=== PATIENT | male | born 1990 | race Caucasian/White ===

== ENCOUNTER 2016-07-09 11:45 | Emergency (ER) | payer SELFPAY ==
[~2016-07-09] VITALS: Ht 172.7 cm; Wt 76.0 kg
[2016-07-09 11:49] VITALS: Ht 172.7 cm; Wt 76.0 kg
== END 2016-07-09 14:37 | disposition left against medical advice (07) ==
LOC: FTE 11:45
DX: Z53.21 Procedure and treatment not carried out due to patient leaving prior to being seen by health care provider (principal)

== ENCOUNTER 2016-09-06 04:20 | Emergency (ER) | payer SELFPAY ==
[~2016-09-06] VITALS: Ht 172.7 cm; Wt 79.0 kg
[2016-09-06 04:24] VITALS: Ht 172.7 cm; Wt 79.0 kg
--- NOTE | 2016-09-06 06:01 | RADRPT ---
PROCEDURE: CT brain without contrast. CLINICAL INDICATION: Headache. TECHNIQUE: CT scan of the brain was performed on a multi-detector high-resolution CT scanner. Co ntiguous axial images were obtained from the skull base to the vertex without intravenous contrast. Coronal and sagittal reformatted images were also obtained. Images were reviewed on the PACS works tation. One or more of the following dose reduction techniques were used: - Automated exposure control. - Adjustment of the mA and/or kV according to patient size. - Use of iterative reconstruction technique. Exam CTD/vol = 44.81 mGy. Total exam DLP = 720.23 mGy-cm. COMPARISON: None. FINDINGS: The ventricles and cortical sulci are within normal limits for patient's age. There is a ted cister na magna. There are no areas of abnormal attenuation within the brain parenchyma. There is no mass effect or midline shift. There is no intracranial hemorrhage or abnormal extra-axial collection. The calvarium is intact. There is no evidence of fracture. Visualized paranasal sinuses and mastoid air cells are clear. 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 IMPRESSION: No acute intracranial abnormality identified. .Marco Hamm MD, MD Date Time Electronically viewed and signed by .Macro Hamm MD, MD on 09/06/2016 06:01 .T/
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
[2016-09-06] MEDS ORDERED: KETOROLAC 30 MG INJ IV STA (06:10)
[2016-09-06] MEDS ORDERED: HC30CR25 TOP (06:24)
[2016-09-06] MEDS ORDERED: DIPHENHYDRAMINE 50 MG INJ IV ONE (06:30)
[2016-09-06] MEDS ORDERED: METOCLOPRAMIDE 10 MG INJ IV ONE (06:30)
[2016-09-06] MEDS ORDERED: SOD CHLORIDE 0.9% 1,000 ML IV ONE (06:30)
== END 2016-09-06 06:30 | disposition left against medical advice (07) ==
LOC: FTE 04:20
DX: R51 Headache (principal); R21 Rash and other nonspecific skin eruption; Z87.891 Personal history of nicotine dependence
CPT/HCPCS: 70450; J7030

== ENCOUNTER 2018-05-01 03:53 | Emergency (ER) | payer MEDICAID ==
[~2018-05-01] VITALS: Ht 172.7 cm; Wt 87.5 kg
[~2018-05-01 03:53] MED LIST: HC30CR25 TOP
[2018-05-01 03:58] VITALS: BP 134/74; PULSE 74; RESP 18; Ht 172.7 cm; Wt 87.5 kg
[2018-05-01] MEDS ORDERED: ONDANSETRON (ODT) 4 MG TAB ODT STA (06:25)
[2018-05-01] MEDS ORDERED: HYDROCODONE/APAP (5/325) TAB PO ONE (06:30)
[2018-05-01] MEDS ORDERED: DOXY100T21 PO (07:33)
[2018-05-01] MEDS ORDERED: IBUP-1542 PO (07:34)
[2018-05-01] MEDS ORDERED: ACET1TAB40 PO (07:34)
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
== END 2018-05-01 07:52 | disposition home or self-care (01) ==
LOC: FTE 03:53
DX: R51 Headache (principal); R40.2142 Coma scale, eyes open, spontaneous, at arrival to emergency department; R40.2362 Coma scale, best motor response, obeys commands, at arrival to emergency department; R40.2252 Coma scale, best verbal response, oriented, at arrival to emergency department; Z87.891 Personal history of nicotine dependence
CPT/HCPCS: 70450; 70480; Z7502; Z7610

== ENCOUNTER 2018-05-09 19:23 | Emergency (ER) | payer MEDICAID ==
[~2018-05-09] VITALS: Ht 170.2 cm; Wt 86.0 kg
[~2018-05-09 19:23] MED LIST changes: +ACET1TAB40 PO; +DOXY100T21 PO; +IBUP-1542 PO
[2018-05-09 19:45] VITALS: BP 131/79; PULSE 104; RESP 18; Ht 170.2 cm; Wt 86.0 kg
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
[2018-05-09] MEDS ORDERED: IBUP-1561 PO (21:57)
[2018-05-09] MEDS ORDERED: ACET325T33 PO (21:57)
[2018-05-09] MEDS ORDERED: IBUPROFEN 200 MG TAB PO ONE (22:00)
== END 2018-05-09 22:16 | disposition home or self-care (01) ==
LOC: FTE 19:23
DX: M25.561 Pain in right knee (principal); M25.562 Pain in left knee; Z87.891 Personal history of nicotine dependence
CPT/HCPCS: Z7502; Z7610; 99282

== ENCOUNTER 2018-05-11 00:49 | Emergency (ER) | payer SELFPAY ==
[~2018-05-11] VITALS: Ht 172.7 cm; Wt 87.0 kg
[~2018-05-11 00:49] MED LIST changes: +ACET325T33 PO; +IBUP-1561 PO
[2018-05-11 00:52] VITALS: BP 131/70; PULSE 118; RESP 18; Ht 172.7 cm; Wt 87.0 kg
[2018-05-12] MEDS ORDERED: ACET1TAB40 PO (02:52)
== END 2018-05-11 05:05 | disposition left against medical advice (07) ==
LOC: FTE 00:49
DX: Z53.21 Procedure and treatment not carried out due to patient leaving prior to being seen by health care provider (principal)

== ENCOUNTER 2018-05-12 00:08 | Emergency (ER) | payer MEDICAID, OTHER ==
[~2018-05-12] VITALS: Ht 165.1 cm; Wt 86.2 kg
[2018-05-12 00:37] VITALS: Ht 165.1 cm; Wt 86.2 kg
--- NOTE | 2018-05-12 02:50 | ERD ---
ER Documentation Chief Complaint Chief Complaint chronic bilateral knee pain HPI 28-year-old male, returns to the emergency department, complaining of persistent knee pain despite the use of Tylenol and Motrin. He denies recent trauma, no fever, no chills. ROS All systems reviewed and are negative except as per history of present illness. Medications Home Meds Active Scripts Acetaminophen* (Tylenol*) 325 Mg Tablet, 2 TAB PO Q8 PRN for PAIN AND OR ELEVATED TEMP, #20 TAB Prov:FCO AYALA MD 05/09/18 Ibuprofen* (Motrin*) 400 Mg Tab, 400 MG PO Q8, #15 TAB Prov:FCO AYALA MD 05/09/18 Acetaminophen with Codeine (Acetaminophen-Cod #3 Tablet) 1 Each Tablet, 1 TAB PO Q6H PRN for PAIN, #10 TAB Prov:SHANNON GOMEZ MD 05/01/18 Ibuprofen* (Motrin*) 600 Mg Tab, 600 MG PO Q6, #20 TAB Prov:SHANNON GOMEZ MD 05/01/18 Doxycycline Monohydrate* (Doxycycline Monohydrate*) 100 Mg Tablet, 100 MG PO BID for 7 Days, TAB Prov:SHANNON GOMEZ MD 05/01/18 Hydrocortisone* Topical (Hydrocortisone* Topical) 2.5%-28.3 Gm Cream..g., 1 A PPLIC TOP BID for 7 Days, #1 TUB Prov:SHANNON GOMEZ MD 09/06/16 Allergies Allergies: Coded Allergies: No Known Allergies (Verified Allergy, Unknown, 09/06/16) PMhx/Soc History of Surgery: Yes (R TIB FIB ORIF, METAL PLATE TO SKULL, L EYE PROSTHESIS) Anesthesia Reaction: No Hx Neurological Disorder: No Hx Respiratory Disorders: No Hx Cardiac Disorders: No Hx Psychiatric Problems: Yes (ETOH abuse, marijuana use) Hx Miscellaneous Medical Probl: No Hx Alcohol Use: Yes (ETOH abuse, sober for 3 years) Hx Substance Use: Yes (marijuana,last used 04/24/2018) Hx Tobacco Use: Yes (quit) Smoking Status: Current every day smoker FmHx Family History: No diabetes, No coronary disease Physical Exam Vitals Vital Signs Date Temp Pulse Resp B/P (MAP) Pulse Ox O2 O2 Flow FiO2 Time Delivery Rate 05/12/18 97.3 96 16 138/88 99 00:37 (105) Physical Exam Const: No acute distress Head: Atraumatic Eyes: Normal Conjunctiva ENT: Normal External Ears, Nose and Mouth. Neck: Full range of motion. No meningismus. Resp: Clear to auscultation bilaterally Cardio: Regular rate and rhythm, no murmurs Abd: Soft, non tender, non distended. Normal bowel sounds Skin: No petechiae or rashes Back: No midline or flank tenderness Ext: No cyanosis, or edema Neur: Awake and alert Psych: Normal Mood and Affect Procedures/MDM Bilateral knee pain pain: no red flags. Differential diagnosis include but not limited to: Knee contusion, meniscus injury, tendon/ligament injury, arthritis; low suspicion for fracture, dislocation, septic arthritis. Neurovascular exam grossly intact. no clinical findings suggestive of acute infectious process, no acute deformity, no edema, no rashes. Physical examination and clinical presentation consistent most likely with chronic knee pain. Results and clinical impression discussed with the patient who agrees with management. The patient is stable to be treated outpatient and will be discharged home with recommendations for ice, rest and partial immobilization. NSAIDs 3 times daily for 5 days and close monitoring. The patient was instructed to follow up with the primary care provider in the next 48h. If symptoms persist, worsen or new symptoms develop, then patient should return to the ED immediately. Instructions explained and given to patient with acknowledgment and demonstrated understanding. Disclaimer: Inadvertent spelling and grammatical errors are likely due to EHR/dictation software use and do not reflect on the overall quality of patient care. Also, please note that the electronic time recorded on this note does not necessarily reflect the actual time of the patient encounter. Departure Diagnosis: Primary Impression: Knee pain Condition: Stable Additional Instructions: Thank you very much for allowing us to participate in your care. Your health and safety is our top priority at [facility]. Call your primary care doctor TOMORROW for an appointment during the next 2-4 days and bring all the information and medications prescribed. Have prescriptions filled and follow precisely the directions on the label. If the symptoms get worse and your provider is unavailable, return to the Emergency Department immediately. FCO AYALA MD May 12, 2018 02:50
[2018-05-12] MEDS ORDERED: ACET1TAB40 PO (02:52)
[2018-05-12 03:05] VITALS: BP 129/87; PULSE 72; RESP 18
== END 2018-05-12 03:07 | disposition home or self-care (01) ==
LOC: FTE 00:08
DX: M25.561 Pain in right knee (principal); M25.562 Pain in left knee; F17.210 Nicotine dependence, cigarettes, uncomplicated
CPT/HCPCS: 99282

== ENCOUNTER 2018-10-09 22:21 | Emergency (ER) | payer SELFPAY ==
[~2018-10-09] VITALS: Ht 172.7 cm; Wt 87.4 kg
[~2018-10-09 22:21] MED LIST changes: +HYDR-4011 PO; +IBUP800T48 PO; +POLY10DR19 BOTH EYES; +POLY10DR19 LEFT EYE
[2018-10-09 22:23] VITALS: BP 147/70; PULSE 99; RESP 20; Ht 172.7 cm; Wt 87.4 kg
--- NOTE | 2018-10-09 22:56 | ERD ---
ER Documentation Chief Complaint Chief Complaint headache x 1 week, L eye drainage x 2 weeks HPI This is a 28-year-old male with a left eye prosthesis who presents to the emergency room for evaluation of discharge from the left eye and slight headache. The patient states he normally gets his eye cleaned once a year however he is not been able to do it this year and states that when he is unable to get dry-cleaning that antibiotic eyedrops do help with any discharge. He denies any fever chills nausea vomiting and came to the ER for evaluation. He does state that he gets migraines frequently and has had a few migraines over the past 48 hours ROS All systems reviewed and are negative except as per history of present illness. Medications Home Meds Active Scripts Acetaminophen with Codeine (Acetaminophen-Cod #3 Tablet) 1 Each Tablet, 1 TAB PO Q6H, #7 TAB Prov:FCO AYALA MD 05/12/18 Acetaminophen* (Tylenol*) 325 Mg Tablet, 2 TAB PO Q8 PRN for PAIN AND OR ELEVATED TEMP, #20 TAB Prov:FCO AYALA MD 05/09/18 Ibuprofen* (Motrin*) 400 Mg Tab, 400 MG PO Q8, #15 TAB Prov:FCO AYALA MD 05/09/18 Acetaminophen with Codeine (Acetaminophen-Cod #3 Tablet) 1 Each Tablet, 1 TAB PO Q6H PRN for PAIN, #10 TAB Prov:SHANNON GOMEZ MD 05/01/18 Ibuprofen* (Motrin*) 600 Mg Tab, 600 MG PO Q6, #20 TAB Prov:SHANNON GOMEZ MD 05/01/18 Doxycycline Monohydrate* (Doxycycline Monohydrate*) 100 Mg Tablet, 100 MG PO BID for 7 Days, TAB Prov:SHANNON GOMEZ MD 05/01/18 Hydrocortisone* Topical (Hydrocortisone* Topical) 2.5%-28.3 Gm Cream..g., 1 APPLIC TOP BID for 7 Days, #1 TUB Prov:SHANNON GOMEZ MD 09/06/16 Allergies Allergies: Coded Allergies: No Known Allergies (Verified Allergy, Unknown, 09/06/16) PMhx/Soc History of Surgery: Yes (R TIB FIB ORIF, METAL PLATE TO SKULL, L EYE PROSTHESIS) Anesthesia Reaction: No Hx Neurological Disorder: No Hx Respiratory Disorders: No Hx Cardiac Disorders: No Hx Psychiatric Problems: Yes (ETOH abuse, marijuana use) Hx Miscellaneous Medical Probl: No Hx Alcohol Use: Yes (ETOH abuse, sober for 3 years) Hx Substance Use: Yes (marijuana,last used 04/24/2018) Hx Tobacco Use: Yes (quit) Physical Exam Vitals Vital Signs Date Temp Pulse Resp B/P (MAP) Pulse Ox O2 O2 Flow FiO2 Time Delivery Rate 10/09/18 97.5 99 20 147/70 96 22:23 (95) Physical Exam Const: No acute distress Head: Atraumatic Eyes: Clear green-tinged discharge noted at the left lacrimal duct, eye prosthesis in place, no signs of periorbital cellulitis ENT: Normal External Ears, Nose and Mouth. Neck: Full range of motion. No meningismus. Resp: Clear to auscultation bilaterally Cardio: Regular rate and rhythm, no murmurs Abd: Soft, non tender, non distended. Normal bowel sounds Skin: No petechiae or rashes Back: No midline or flank tenderness Ext: No cyanosis, or edema Neur: Awake and alert Psych: Normal Mood and Affect Procedures/MDM This 28-year-old male presents to the ER for evaluation of left eye discharge. The patient does have a prosthesis in the eye and I did note some green-tinged discharge. The patient has no fevers, he has no neck pain. No signs of meningitis the patient will be discharged home with sulfacetamide eyedrops, [place] for his headaches. Departure Diagnosis: Primary Impression: Eye infection Additional Impression: Migraine headache Condition: KRISTEN Mata DO Oct 09, 2018 22:56
== END 2018-10-09 23:01 | disposition home or self-care (01) ==
LOC: E/R 22:21
DX: H57.89 Other specified disorders of eye and adnexa (principal); G43.909 Migraine, unspecified, not intractable, without status migrainosus; Z87.891 Personal history of nicotine dependence
CPT/HCPCS: 99283

== ENCOUNTER 2018-10-24 02:30 | Emergency (ER) | payer SELFPAY ==
[~2018-10-24] VITALS: Ht 172.7 cm; Wt 89.6 kg
[2018-10-24 02:33] VITALS: Ht 172.7 cm; Wt 89.6 kg
[2018-10-24] MEDS ORDERED: morphine 4 MG/ML VIAL IV STA (03:27)
[2018-10-24] MEDS ORDERED: METOCLOPRAMIDE 10 MG INJ IV STA (03:27)
[2018-10-24] MEDS ORDERED: KETOROLAC 30 MG INJ IV STA (03:27)
[2018-10-24] MEDS ORDERED: SOD CHLORIDE 0.9% 1,000 ML IV STA (03:27)
--- NOTE | 2018-10-24 04:22 | ERD ---
ER Documentation Chief Complaint Chief Complaint Pt reports L eye paihn x 3-4 weeks HPI 28-year-old male presents ED complaining of pain in his left prosthetic eye x1 month. He states he was here at this emergency department about a month ago for previous symptoms. He reports yellow discharge from his medial lacrimal duct. He states that he has not followed up with an vacuum cleaner operator since then. He denies any fevers or chills. He states that his biggest complaint is a headache. He states that his headache is chronic in nature as he has a metal plate in his head for the past 5 years. ROS All systems reviewed and are negative except as per history of present illness. Medications Home Meds Active Scripts Hydrocodone/Acetaminophen ([place] 5-325 Tablet) 1 Each Tablet, 1 TAB PO Q6H PRN for PAIN, #7 TAB Prov:BLAS QUIÑONES PA-C 10/24/18 Ibuprofen* (Motrin*) 800 Mg Tab, 800 MG PO Q6H PRN for PAIN AND OR ELEVATED TEMP, #30 TAB Prov:BLAS QUIÑONES PA-C 10/24/18 Polymyxin B Sulfate-TMP* (Polymyxin B-TMP Eye Drops*) 10 Ml Drops, 1 DROP LEFT EYE QID for 7 Days, EA Prov:BLAS QUIÑONES PA-C 10/24/18 Hydrocodone/Acetaminophen ([place] 5-325 Tablet) 1 Each Tablet, 1 TAB PO Q6H PRN for PAIN, #7 TAB Prov:KRISTEN DAILEY DO 10/09/18 Polymyxin B Sulfate-TMP* (Polymyxin B-TMP Eye Drops*) 10 Ml Drops, 1 DROP BOTH EYES QID for 7 Days, EA Prov:KRISTEN DAILEY DO 10/09/18 Acetaminophen with Codeine (Acetaminophen-Cod #3 Tablet) 1 Each Tablet, 1 TAB PO Q6H, #7 TAB Prov:FCO AYALA MD 05/12/18 Acetaminophen* (Tylenol*) 325 Mg Tablet, 2 TAB PO Q8 PRN for PAIN AND OR ELEVATED TEMP, #20 TAB Prov:FCO AYALA MD 05/09/18 Ibuprofen* (Motrin*) 400 Mg Tab, 400 MG PO Q8, #15 TAB Prov:FCO AYALA MD 05/09/18 Acetaminophen with Codeine (Acetaminophen-Cod #3 Tablet) 1 Each Tablet, 1 TAB PO Q6H PRN for PAIN, #10 TAB Prov:SHANNON GOMEZ MD 05/01/18 Ibuprofen* (Motrin*) 600 Mg Tab, 600 MG PO Q6, #20 TAB Prov:SHANNON GOMEZ MD 05/01/18 Doxycycline Monohydrate* (Doxycycline Monohydrate*) 100 Mg Tablet, 100 MG PO BID for 7 Days, TAB Prov:SHANNON GOMEZ MD 05/01/18 Hydrocortisone* Topical (Hydrocortisone* Topical) 2.5%-28.3 Gm Cream..g., 1 APPLIC TOP BID for 7 Days, #1 TUB Prov:SHANNON GOMEZ MD 09/06/16 Allergies Allergies: Coded Allergies: No Known Allergies (Verified Allergy, Unknown, 09/06/16) PMhx/Soc History of Surgery: Yes (METAL PLATE ON THE SKULL(TRAUMA HEAD INJURY HX). ) Anesthesia Reaction: No Hx Neurological Disorder: No Hx Respiratory Disorders: No Hx Cardiac Disorders: No Hx Psychiatric Problems: No Hx Miscellaneous Medical Probl: No Hx Alcohol Use: No Hx Substance Use: No Hx Tobacco Use: Yes (quit) Smoking Status: Never smoker FmHx Family History: No diabetes Physical Exam Vitals Vital Signs Date Temp Pulse Resp B/P (MAP) Pulse Ox O2 O2 Flow FiO2 Time Delivery Rate 10/24/18 97.8 101 20 133/80 100 02:33 (97) Physical Exam Const: No acute distress Head: Atraumatic EYE: Left eye is a prosthetic, slight yellowish discharge in the medial lacrimal duct Resp: Clear to auscultation bilaterally Cardio: Regular rate and rhythm Abd: Soft, non tender, non distended. Neur: Awake and alert, CN 2-12 intact, no pronator drift, equal strength and sensation in all extremities 5 out of 5 able to follow commands appropriately Psych: Normal Mood and Affect Results 24 hrs Current Medications Medications Dose Sig/Meenakshi Start Time Status Last (Trade) Ordered Route PRN Stop Time Admin Dose Reason Admin Sodium 1,000 ml @ Q1H STAT 10/24/18 DC 10/24/18 Chloride 1,000 mls/hr IV 03:27 03:58 10/24/18 04:26 10 mg ONCE STAT 10/24/18 DC 10/24/18 Metoclopramid IV 03:27 03:56 e HCl 10/24/18 03:29 (Reglan) Morphine 4 mg ONCE STAT 10/24/18 DC 10/24/18 Sulfate IV 03:27 03:55 (morphine) 10/24/18 03:29 Ketorolac 30 mg ONCE STAT 10/24/18 DC 10/24/18 Tromethamine IV 03:27 03:56 (Toradol) 10/24/18 03:29 Procedures/MDM ED COURSE: The patient was stable throughout ED course. I kept the patient informed of laboratory and diagnostic imaging results throughout the ED course. MEDICATIONS GIVEN: IV fluids, Reglan, morphine, Toradol Patient tolerated medication well with no adverse reactions. Patient reported improvement in pain. MEDICAL DECISION MAKING: Patient is a 28-year-old male complaining of a headache and discharge from his prosthetic left eye. At this time I have low suspicion for subarachnoid, subdural hematoma, TIA, stroke, orbital cellulitis, cellulitis, systemic infection. Patient was given IV fluids in the ED along with medications. On reexamination the patient patient was asleep. On awaking the patient he stated he felt so much better. He is asking to be discharged in order to go home and check up on his mother. At this time patient is appropriate for outpatient follow-up. He was given strict return to ED precautions if symptoms persist or worsen. He was given information to local community clinics for primary care and for an vacuum cleaner operator. Patient agreed with the plan all questions were answered Vital signs were reviewed. Patient is afebrile. Patient was not hypoxic. Patient was hemodynamically stable. Patient was told to follow up with primary care for further care and management. PRESCRIPTION: [place], Motrin, polymyxin B DISCHARGE: At this time, patient is stable for discharge and outpatient management. I have instructed the patient to follow-up with their primary care physician in 1-2 days. I have discussed with the patient the possibility of needing to see a specialist for further workup and imaging studies if symptoms persist. I have instructed the patient to promptly return to the ER for any new or worsening symptoms including increased pain, fever, nausea, vomiting, weakness or LOC. The patient expressed understanding of and agreement with this plan. All questions were answered. Home care instructions were provided. Disclaimer: Inadvertent spelling and grammatical errors are likely due to EHR/dictation software use and do not reflect on the overall quality of patient care. Also, please note that the electronic time recorded on this note does not necessarily reflect the actual time of the patient encounter. Departure Diagnosis: Primary Impression: Head ache Headache type: unspecified Headache chronicity pattern: chronic headache Intractability: not intractable Qualified Codes: R51 - Headache Additional Impression: Eye problem Condition: Fair Patient Instructions: Headache, Unspecified Referrals: [facility] YOU HAVE RECEIVED A MEDICAL SCREENING EXAM AND THE RESULTS INDICATE THAT YOU DO NOT HAVE A CONDITION THAT REQUIRES URGENT TREATMENT IN THE EMERGENCY DEPARTMENT. FURTHER EVALUATION AND TREATMENT OF YOUR CONDITION CAN WAIT UNTIL YOU ARE SEEN IN YOUR DOCTORS OFFICE WITHIN THE NEXT 1-2 DAYS. IT IS YOUR RESPONSIBILITY TO MAKE AN APPOINTMENT FOR FOLOW-UP CARE. IF YOU HAVE A PRIMARY DOCTOR --you should call your primary doctor and schedule an appointment IF YOU DO NOT HAVE A PRIMARY DOCTOR YOU CAN CALL OUR PHYSICIAN REFERRAL HOTLINE AT IF YOU CAN NOT AFFORD TO SEE A PHYSICIAN YOU CAN CHOSE FROM THE FOLLOWING [facility] [address] [facility]. [facility] [address] [facility]. [facility] [address] [facility] [facility] [address] [facility] [facility] [address] [facility]. [facility]. [address] [facility]. [facility] YOU HAVE RECEIVED A MEDICAL SCREENING EXAM AND THE RESULTS INDICATE THAT YOU DO NOT HAVE A CONDITION THAT REQUIRES URGENT TREATMENT IN THE EMERGENCY DEPARTMENT. FURTHER EVALUATION AND TREATMENT OF YOUR CONDITION CAN WAIT UNTIL YOU ARE SEEN IN YOUR DOCTORS OFFICE WITHIN THE NEXT 1-2 DAYS. IT IS YOUR RESPONSIBILITY TO MAKE AN APPOINTMENT FOR FOLOW-UP CARE. IF YOU HAVE A PRIMARY DOCTOR --you should call your primary doctor and schedule and appointment IF YOU DO NOT HAVE A PRIMARY DOCTOR YOU CAN CALL OUR PHYSICIAN REFERRAL HOTLINE AT . IF YOU CAN NOT AFFORD TO SEE A PHYSICIAN YOU CAN CHOSE FROM THE FOLLOWING [facility] INSTITUTIONS: [facility] [address] [place] [address] [facility] [address] [place] [address] [facility] [address] [place] [address] [facility] Hours: Mon - Fri 9:00 AM - 5:00 PM Additional Instructions: Call your primary care doctor TOMORROW for an appointment during the next 1-2 days.See the doctor sooner or return here if your condition worsens before your appointment time. BLAS QUIÑONES PA-C Oct 24, 2018 04:22
[2018-10-24 05:20] VITALS: BP 108/73; PULSE 71; RESP 16
== END 2018-10-24 05:20 | disposition home or self-care (01) ==
LOC: FTE 02:30
DX: R51 Headache (principal); G89.29 Other chronic pain; H57.12 Ocular pain, left eye; Z87.891 Personal history of nicotine dependence
CPT/HCPCS: 96361; 96374; 96375; 99284; J1885; J2270; J2765; J7030